=== PATIENT | female | born 1945 | race Caucasian/White ===

== ENCOUNTER 2018-08-31 06:11 | Inpatient (IN) ==
--- NOTE | 2018-08-13 08:29 | History & Physical Report ---
Date of Service August 13, 2018 Date of Surgery: 08-31-18 Assessment & Plan (1) Tricompartment osteoarthritis of right knee: Risks and benefits of procedure discussed in detail today, patient would like to proceed with a Right total knee replacement at [facility] as scheduled. she has already had her medical clearance with [facility], Will d/c her Eliquis 3 days prior to surgery and resume JENNIFER post op. f/u 2 weeks post op for routine post-operative care and x-ray, sooner if having any problems. will make arrangements for possible transfer to [facility]. At this point in time, has failed conservative measures and would like to proceed with surgical intervention. History of Present Illness Chief Complaint: right knee pain Primary Care Provider: Delroy Peralta Ms Ac is a 73 year old female who is here for a follow up of right knee pain, presents for pre-op evaluation prior to a Right tka for 08-31-18. she complains of pain, decreased range of motion and stiffness. She states that the symptoms have been chronic non-traumatic. The symptoms are aggravated by ascending stairs, first steps while awake, walking, weight bearing and daily activities. [place] states that the symptoms are not relieved by the previous injections, unable to take NSAIDs due to Eliquis. is on Eliquis therapy which limits her NSAID use. She has been treated with PT, has had Visco and Cortisone in the past on the right side. She has had Pt. has a brace, however it causes increased pain and cane as needed. Pt. lives alone in a 2 story home with 1 step to enter onto the porch and many stairs to acces her second floor, including bathroom and bedroom. Allergies Allergy/AdvReac Type Severity Reaction Status Date / Time doxycycline Allergy Unknown pt can't Verified 08/06/18 08:17 remember niacin Allergy Unknown MUSCLE PAIN Verified 08/06/18 08:17 Beta-Blockers AdvReac Unknown HAIR LOSS Verified 08/06/18 08:17 (Beta-Adrenergic Bloc lisinopril AdvReac Unknown COUGH Verified 08/06/18 08:17 Home Medications Home Medications Medication Instructions Recorded Confirmed Type Calcium 600 + D(3) 1 cap PO BID 11/03/17 08/06/18 History Eliquis 5 mg PO BID 11/03/17 08/06/18 History Mcbrides-3 1 tab PO BID 11/03/17 08/06/18 History Super B Complex + C 1 tab PO DAILY 11/03/17 08/06/18 History ascorbic acid (vitamin C) [Vitamin 1 g PO DAILY 11/03/17 08/06/18 History C] aspirin 81 mg PO HS 11/03/17 08/06/18 History diltiazem HCl [DILT-XR] 120 mg PO QAM 11/03/17 08/06/18 History docusate sodium 100 mg PO DAILY 11/03/17 08/06/18 History fexofenadine [Ella Allergy] 180 mg PO QAM 11/03/17 08/06/18 History hydrochlorothiazide 12.5 mg PO QAM 11/03/17 08/06/18 History irbesartan [Avapro] 300 mg PO HS 11/03/17 08/06/18 History montelukast [Singulair] 10 mg PO QPM 11/03/17 08/06/18 History multivitamin 1 tab PO DAILY 11/03/17 08/06/18 History omeprazole 20 mg PO QAM 11/03/17 08/06/18 History potassium 99 mg PO DAILY 11/03/17 08/06/18 History sumatriptan succinate [Imitrex] 0.5 tab PO DAILY PRN 11/03/17 08/06/18 History zinc 50 mg PO DAILY 11/03/17 08/06/18 History oxycodone 5 - 10 mg PO Q4H PRN #60 tab 11/21/17 08/06/18 Rx acetaminophen [Pain Reliever] 1,000 mg PO Q8 PRN 08/06/18 08/06/18 History rosuvastatin [Crestor] 10 mg PO HS 08/06/18 08/06/18 History Past Med/Surg History Medical History Anxiety Atrial fibrillation PAROXYSMAL. DX 2 YEARS AGO - ON ELIQUIS/NO CARDIOVERSION GERD (gastroesophageal reflux disease) History of anesthesia reaction TAKES A LITTLE LONGER TO WAKE UP Hyperlipidemia Hypertension Kidney stones Left cataract Migraine Osteoarthritis Surgical History Family history of reaction to anesthesia daughter was told not to have succinylcholine after she had an 'irregular HR' after T+A--pt has had GA several times without issues. Denies specifically hearing terms MH or pseudocholinesterase deficiency. Fusion of spine L4-S1 2012 @ [facility]. Pt recalls very painful arterial line placement! No anesthesia complications. History of appendectomy History of cardiac cath 2013 -CP - NO ANGIOPLASTY/STENTS History of cataract extraction RIGHT/ UPCOMING LEFT AUGUST 09 History of section History of colonoscopy History of dilatation and curettage History of hysterectomy History of tonsillectomy and adenoidectomy History of total left knee replacement Family History Brother Family history of brain cancer Social History Preferred Language: Kyrgyz Communication Ability: Effective Box Office Attendant Required: No Beliefs That Will Affect Care: Temple Temple Beliefs: CONGREGATION Current Living Situation: Alone Other Information That Helps Us Care for You: No Feels Safe at Home: Yes Smoking Status: Former smoker Tobacco Type: cigarettes Do You Dip or Chew Tobacco: No Smoking End Date: 1985 Second Hand Exposure: No Hx Alcohol Use: No Hx Substance Use: No Review of Systems Review of Systems: All systems reviewed & are unremarkable except as noted in HPI & below Constitutional: no fever, no chills and no sweats Respiratory: no cough and no dyspnea Cardiovascular: no chest pain, no dyspnea and no orthopnea Gastrointestinal: no nausea and no vomiting Musculoskeletal: as per Subjective / HPI Physical Exam Physical Exam: Ht: 5ft 2in Wt: 90.72kg BP: 160/86 Pulse: 78 Constitutional: WD/WN, vitals as above no acute distress Respiratory: normal respiratory effort, lungs clear to auscultation no respiratory distress, no labored breathing and does not use accessory muscles Cardiovascular: RRR, no murmur, no edema Gastrointestinal (Abdomen): normal bowel sounds, soft, nontender, no hepatosplenomegaly Musculoskeletal: Right Knee Exam- she ambulates with a limp, overall she has varus alignment, there is no atrophy, moderate effusion, diffuse tenderness to the knee greatest over medial compartment, mild crepitation with motion, maribel's negative, Anson's is positive, Posterior drawer- negative, anterior drawer negative, valgus stress negative, varus stress negative, there is no extensor lag, pain with active range of motion, Range of motion 0/3/110. No pain with active/passive ROM of ankle. Lower extremity strength normal. Lower extremity neuro-vascular is normal Skin: no rashes, warm and dry Results & Data Diagnostic Findings Right Knee X-ray from January 2018 showing advanced degenerative changes to the right knee, with narrowing of the medial compartment and of the patello-femoral joint with patellar spurring noted, findings consistent with joint space narrowing, osteophyte formation and subchondral sclerosis noted. overall varus alignment. no acute bony pathology noted.
--- NOTE | 2018-08-13 10:56 | PAT Medication Instructions ---
Medication Instructions Date of Service August 13, 2018 Home Medications Medication Instructions Recorded oxycodone 5 - 10 mg PO Q4H PRN #60 tab 11/21/17 Calcium 600 + D(3) 1 cap PO BID Eliquis 5 mg PO BID Mcgrann-3 1 tab PO BID Super B Complex + C 1 tab PO DAILY ascorbic acid (vitamin C) [Vitamin C] 1 g PO DAILY aspirin 81 mg PO HS diltiazem HCl [DILT-XR] 120 mg PO QAM docusate sodium 100 mg PO DAILY fexofenadine [Ella Allergy] 180 mg PO QAM hydrochlorothiazide 12.5 mg PO QAM irbesartan [Avapro] 300 mg PO HS montelukast [Singulair] 10 mg PO QPM multivitamin 1 tab PO DAILY omeprazole 20 mg PO QAM potassium 99 mg PO DAILY sumatriptan succinate [Imitrex] 0.5 tab PO DAILY PRN zinc 50 mg PO DAILY oxycodone 5 - 10 mg PO Q4H PRN acetaminophen [Pain Reliever] 1,000 mg PO Q8 PRN rosuvastatin [Crestor] 10 mg PO HS ASK your prescriber and surgeon Eliquis 5 mg PO BID MUST BE HELD A MINIMUM OF 72 HOURS FOR SPINAL ANESTHESIA (PREFERRED METHOD) STOP taking 2 weeks before surgery Mcgrann-3 1 tab PO BID DO NOT take the morning of surgery Calcium 600 + D(3) 1 cap PO BID Super B Complex + C 1 tab PO DAILY ascorbic acid (vitamin C) 1 g PO DAILY docusate sodium 100 mg PO DAILY fexofenadine [Ella Allergy] 180 mg PO QAM hydrochlorothiazide 12.5 mg PO QAM multivitamin 1 tab PO DAILY potassium 99 mg PO DAILY zinc 50 mg PO DAILY Take morning of surgery With a small sip of water, OTHERWISE NOTHING TO EAT OR DRINK AFTER MIDNIGHT: diltiazem HCl [DILT-XR] 120 mg PO QAM omeprazole 20 mg PO QAM sumatriptan succinate [Imitrex] 0.5 tab PO DAILY PRN (if needed) oxycodone 5 - 10 mg PO Q4H PRN (if needed, may be taken up to four hours before surgery) acetaminophen [Pain Reliever] 1,000 mg PO Q8 PRN (if needed, may be taken up to four hours before surgery) Take evening before surgery Calcium 600 + D(3) 1 cap PO BID aspirin 81 mg PO HS irbesartan [Avapro] 300 mg PO HS montelukast [Singulair] 10 mg PO QPM sumatriptan succinate [Imitrex] 0.5 tab PO DAILY PRN (if needed) oxycodone 5 - 10 mg PO Q4H PRN (if needed) acetaminophen [Pain Reliever] 1,000 mg PO Q8 PRN (if needed) rosuvastatin [Crestor] 10 mg PO HS Other Notes If you have any questions please call us at [phone] or [phone] or [phone] or [phone]
--- NOTE | 2018-08-13 11:10 | Anesthesiology Consultation ---
Date of Service August 13, 2018 Assessment & Plan (1) Encounter for pre-operative examination: Cardiac Clearance 07/27/18 = "from knee surgery standpoint... should be considered a low to intermediate risk candidate. No further cardiovascular testing or procedures are recommended prior to undergoing knee surgery." Chart Review Chart Review: Acceptable Risk for Surgery and Patient seen in Pre Admission Testing Teaching & Discussion Instructed NPO after midnight before surgery, except medications with 15 cc of water. Medication instructions provided according to the PAT guidelines. History Surgery Operation Date: 08/31/18 07:15 Proposed Procedures p Right Total Knee Arthroplasty - Andrea Domingo DO Height/Weight Height: 5 ft 2 in Weight: 92.7 kg Allergies Allergy/AdvReac Type Severity Reaction Status Date / Time doxycycline Allergy Unknown pt can't Verified 08/06/18 08:17 remember niacin Allergy Unknown MUSCLE PAIN Verified 08/06/18 08:17 Beta-Blockers AdvReac Unknown HAIR LOSS Verified 08/06/18 08:17 (Beta-Adrenergic Bloc lisinopril AdvReac Unknown COUGH Verified 08/06/18 08:17 Medications Home Medications Medication Instructions Recorded Confirmed Last Taken Calcium 600 + D(3) 1 cap PO BID 11/03/17 08/06/18 10/29/17 09:00 Eliquis 5 mg PO BID 11/03/17 08/06/18 08/06/18 Gypsy-3 1 tab PO BID 11/03/17 08/06/18 10/29/17 09:00 Super B Complex + C 1 tab PO DAILY 11/03/17 08/06/18 10/29/17 09:00 ascorbic acid (vitamin C) [Vitamin 1 g PO DAILY 11/03/17 08/06/18 10/29/17 09:00 C] aspirin 81 mg PO HS 11/03/17 08/06/18 08/05/18 diltiazem HCl [DILT-XR] 120 mg PO QAM 11/03/17 08/06/18 08/06/18 docusate sodium 100 mg PO DAILY 11/03/17 08/06/18 11/16/17 15:00 fexofenadine [Ella Allergy] 180 mg PO QAM 11/03/17 08/06/18 08/06/18 hydrochlorothiazide 12.5 mg PO QAM 11/03/17 08/06/1819 irbesartan [Avapro] 300 mg PO HS 11/03/17 08/06/18 08/05/18 montelukast [Singulair] 10 mg PO QPM 11/03/17 08/06/18 08/05/18 multivitamin 1 tab PO DAILY 11/03/17 08/06/18 10/29/17 09:00 omeprazole 20 mg PO QAM 11/03/17 08/06/18 08/06/18 potassium 99 mg PO DAILY 11/03/17 08/06/18 10/29/17 09:00 sumatriptan succinate [Imitrex] 0.5 tab PO DAILY PRN 11/03/17 08/06/18 11/18/17 21:00 zinc 50 mg PO DAILY 11/03/17 08/06/18 10/29/17 09:00 oxycodone 5 - 10 mg PO Q4H PRN #60 tab 11/21/17 08/06/18 Unknown acetaminophen [Pain Reliever] 1,000 mg PO Q8 PRN 08/06/18 08/06/18 Unknown rosuvastatin [Crestor] 10 mg PO HS 08/06/18 08/06/18 08/05/18 Past Medical History Medical History Anxiety Atrial fibrillation PAROXYSMAL. DX 2 YEARS AGO - ON ELIQUIS GERD (gastroesophageal reflux disease) Hyperlipidemia Hypertension Kidney stones Migraine Obesity Osteoarthritis Exercise / Class Metabolic Activity II 4-5 Yardwork/Stairs/Walk up hill (Denies chest pain, some SOB with stairs but goes slowly 2/2 knee pain, does stairs daily) Past Family History Family History Brother Family history of brain cancer Past Surgical History Surgical History Family history of reaction to anesthesia daughter was told not to have succinylcholine after she had an 'irregular HR' after T+A--pt has had GA several times without issues. Denies specifically hearing terms MH or pseudocholinesterase deficiency. Fusion of spine L4-S1 2012 @ [facility]. Pt recalls very painful arterial line placement! No anesthesia complications. History of appendectomy History of cardiac cath 2014 -CP - NO ANGIOPLASTY/STENTS History of cataract extraction History of section History of colonoscopy History of dilatation and curettage History of hysterectomy History of tonsillectomy and adenoidectomy History of total left knee replacement Past Anesthesia History No Hx of Anesthesia Complications and Other Daughter was told not to have succinylcholine after she had an 'irregular HR' after T+A--pt has had GA several times without issues. Denies specifically hearing terms MH or pseudocholinesterase deficiency. S/P L TKA 11/19/17 = SAB + PNB, NO ISSUES PER RECORD. History of PONV No Hx of PONV and No Hx of Motion Sickness Social History Smoking Status: Former smoker tobacco type: cigarettes Do You Dip or Chew Tobacco: No Smoking End Date: 1985 Hx Alcohol Use: No Hx Substance Use: No substance use type: does not use Review of Systems Pt denies any recent chest pain, shortness of breath, cough, fever or URI. +palpitations (pt has afib) Physical Exam Vital Signs BP: 111/68 P: 59bpm SPO2: 94% RA T: 97.6 F R: 14 ENMT Mouth: + dental restorations (few crowns); no chipped teeth and no loose teeth Thyromental Distance: > or= 3.5 Finger Breadths (3.5) Mallampati Class: I Neck normal visual inspection; neck extension not limited Respiratory normal respiratory effort Auscultation: lungs clear to auscultation bilaterally Cardiovascular Rate/Rhythm: regular rate and regular rhythm Heart Sounds: no murmur Vessels: no carotid bruit Extremities: no edema Testing Laboratory Results 08/13/18 11:35 08/13/18 11:35 PT 10.7 Seconds (9.0-12.0) 08/13/18 11:35 INR 1.0 (0.9-1.1) 08/13/18 11:35 APTT 28.1 Seconds (21.0-31.0) 08/13/18 11:35 Hemoglobin A1c 6.3 % (4.5-5.6) H 08/13/18 11:35 Urine Color Yellow 08/13/18 Unknown Urine Appearance Clear (Clear) 08/13/18 Unknown Urine pH 6.5 (4.5-7.5) 08/13/18 Unknown Ur Specific Sidney 1.021 (1.000-1.030) 08/13/18 Unknown Urine Protein Negative (Negative) 08/13/18 Unknown Urine Glucose (UA) Negative (Negative) 08/13/18 Unknown Urine Ketones Negative (Negative) 08/13/18 Unknown Urine Nitrite Negative (Negative) 08/13/18 Unknown Ur Leukocyte Esterase Negative (Negative) 08/13/18 Unknown Blood Type A Positive 08/13/18 11:35 Antibody Screen NEGATIVE 08/13/18 11:35 Electrocardiogram Date: 07/14/18 Findings: + NSR @ (67) Nonspecific ST depression and diffuse nonspecific T abnormality. Chest X-Ray Date: 11/09/17 Findings: + NAD Echocardiogram Date: 11/13/16 EF: 67% Normal left ventricular chamber size with mild concentric hypertrophy and normal contractility. Normal left ventricular ejection fraction, EF 67%. Right ventricle is normal in size and contractility. Mild left atrial enlargement. Mitral inflow pattern suggestive of impaired relaxation. Stress Test Date: 07/20/18 Type: nuclear Lexiscan Cardiolite stress test demonstrates normal myocardial perfusion. Left ventricular wall motion is normal with EF greater than 65%. Cardiac Catheterization Date: 04/05/13 Other Testing Holter Monitor 09/11/17 Predominantly NSR, no arrhythmia, no afib.
[2018-08-13 14:17] LABS: Basophils # (auto) 0.02 K/uL (0-0.2); Basophils % (auto) 0.3 %; Eosinophils # (auto) 0.29 K/uL (0-0.5); Eosinophils % (auto) 3.9 %; Hematocrit (blood only) 42.2 % (37-47); Hemoglobin 13.6 g/dL (12.0-16.0); Immature Granulocytes # (auto) 0.02 K/uL (0.00-0.02); Immature Granulocytes % (auto) 0.3 %; Lymphocytes # (auto) 1.58 K/uL (1.2-3.4); Lymphocytes % (auto) 21.1 %; Mean Corpuscular Hgb Conc 32.2 g/dL (32-36); Mean Corpuscular Volume 81.6 fL (80-100); Mean Platelet Volume 9.4 fL (7.4-10.4); Monocytes % (auto) 6.7 %; Neutrophils # (auto) 5.09 K/uL (1.4-6.5); Neutrophils % (auto) 67.7 %; Platelet Count 284 K/uL (130-400); RDW Coefficient of Variation 15.9 % (11.5-14.5); RDW Standard Deviation 47.6 fL (36.4-46.3); Red Blood Count 5.17 M/uL (4.2-5.4)
[2018-08-13 14:34] LABS: Estimated Average Glucose 134 mg/dl; Hemoglobin A1C 6.3 % (4.5-5.6)
[2018-08-13 14:35] LABS: Albumin Level 3.9 gm/dl (3.4-5.0); BUN Creatinine Ratio 24.8 (10-20); Calcium 9.7 mg/dl (8.5-10.1); Creatinine Clr Calc Pharmacy 69.9 ml/min; Est GFR (African American) 90.2; Est GFR (Non-African American) 77.8; Potassium 3.8 mmol/L (3.5-5.1)
[2018-08-13 14:38] LABS: Partial Thromboplastin Time 28.1 Seconds (21.0-31.0); Prothrombin Time 10.7 Seconds (9.0-12.0)
[2018-08-13 14:45] LABS: Appearance Urine Clear (Clear); Bilirubin Urine Negative (Negative); Blood Urine Negative (Negative); Color Urine Yellow; Glucose Urine UA Negative (Negative); Ketones Urine Negative (Negative); Leukocyte Esterase Urine Negative (Negative); Nitrite Urine Negative (Negative); Protein Urine Negative (Negative); Specific Gravity Urine 1.021 (1.000-1.030); Urobilinogen Urine Negative (Negative); pH Urine 6.5 (4.5-7.5)
[~2018-08-31 06:11] MED LIST: ACETAMINOPHEN 500 MG TAB PO SCH; CEFAZOLIN 1000MG 1,000 MG/7.5 ML SYR IV SCH; CEFAZOLIN 2000MG 2,000 MG/15 ML SYR IV SCH; CeleBREX 200 MG CAP PO SCH; FAMOTIDINE 20 MG TAB PO SCH; GABAPENTIN 300 MG CAP PO SCH; LR 500ML BOLUS IV SCH; LR 500ML BOLUS, THEN 15ML/HR IV SCH; ROPIVACAINE 0.5% HCL/PF 150 MG, BUPIVACAINE 0.5% MPF 30 ML, EPINEPHrine 30MG/30ML (OR U... INSTIL SCH; TRANEXAMIC ACID 1,000 MG **IV Pre-op IV SCH; dexAMETHasone 4 MG TAB PO SCH
[2018-08-31] MEDS ORDERED: TRANEXAMIC ACID 1,000 MG **IV Intra-op IV SCH (06:30)
[2018-08-31] MEDS ORDERED: ROPIVACAINE 0.5% 5 MG/ML 30 ML VIAL ONE (06:31)
[2018-08-31] MEDS ORDERED: BUPIVACAINE 0.5 % 5 MG/1 ML PF 10ML VIAL ONE (06:31)
--- NOTE | 2018-08-31 06:59 | History & Physical Bridge Note ---
Date of Service August 31, 2018 History & Physical Bridge Note I have examined the patient, reviewed the History & Physical and in the interval since the performance of the History & Physical I have noted the following changes of clinical significance: no changes noted
[2018-08-31] MEDS ORDERED: MIDAZOLAM HCL 1 MG/ML 2ML VIAL ONE (07:07)
[2018-08-31] MEDS ORDERED: fentaNYL citrate 100 MCG/2 ML VIAL ONE (07:07)
[2018-08-31] MEDS ORDERED: LIDOCAINE HCL 2% 2 ML VIAL/AMP(20MG/ML) INFIL ONE (07:07)
[2018-08-31] MEDS ORDERED: ONDANSETRON INJ 2 MG/ML 2 ML VIAL ONE (07:07)
[2018-08-31] MEDS ORDERED: PROPOFOL IV EMULSION 10 MG/ML 20 ML VIAL IV ONE ×2 (07:07→09:00)
[2018-08-31] MEDS ORDERED: ORTHO JOINT ANESTHETIC ONE (07:20)
[2018-08-31] MEDS ORDERED: BACITRACIN INJ 50,000 UNIT VIAL ONE (07:20)
[2018-08-31] MEDS ORDERED: ONDANSETRON INJ 2 MG/ML 2 ML VIAL IV PRN ×2 (08:27→11:37)
[2018-08-31] MEDS ORDERED: ePHEDrine sulfate 50 MG/ML AMP IV PRN (08:27)
[2018-08-31] MEDS ORDERED: ATROPINE SULFATE 0.1 MG/ML 10ML SYR IV PRN (08:27)
[2018-08-31] MEDS ORDERED: fentaNYL citrate 100 MCG/2 ML VIAL IV PRN (08:27)
[2018-08-31] MEDS ORDERED: GLYCOPYRROLATE 0.2 MG/ML VIAL ONE (09:14)
[2018-08-31] MEDS ORDERED: PHENYLEPHRINE HCL 10 MG/ML VIAL ONE (09:14)
[2018-08-31] MEDS ORDERED: ePHEDrine sulfate 50 MG/ML SYR ONE (09:14)
--- NOTE | 2018-08-31 09:33 | Operative Report ---
Post Operative Report Pre & Post Diagnosis Operation Date: 08/31/18 08:35 Pre-Op Diagnosis: Tricompartment Osteoarthritis, Right Knee Post-Op Diagnosis: Tricompartment Osteoarthritis, Right Knee Procedure Operation Date: 08/31/18 08:35 Actual Procedures p Right Total Knee Arthroplasty, Cemented(Right) utilizing Sanabria & NephGuzu journey to non-block total knee arthroplasty size 4 femur 3 tibia 13 polyethylene 29 round patella- Andrea Domingo DO Surgeon Andrea Domingo DO It Consulting Director Zana LUJAN Estimated Blood Loss 5 Findings Consistent with Post-Op Diagnosis Patient presents with severe end-stage DJD right knee varus alignment bone to bone changes with marginal osteophyte subchondral sclerosis subchondral cystic changes no response to conservative management Specimens Bone guard Complications none Disposition Accompanied Patient To Recovery: No Disposition: Recovery Room Indications Patient resents with severe end-stage TriCor milligrams joint disease of the right knee no response to conservative management including physical therapy anti-inflammatories relative rest activity modification Visco supplementation corticosteroid injections patient presents for right total knee arthroplasty Description of Procedure After proper prepping and draping of the Right lower extremity anterior midline incision was made over the region of the extensor extensor mechanism after meticulous hemostasis was obtained and maintained in subcutaneous tissues a medial parapatellar incision was made The patella was subluxed lateralward the medial lateral gutter were cleaned from any hypertrophic synovitis and scar tissue of the distal femoral block was placed and the distal femoral osteotomy cut was made subsequently the chamfers anterior and posterior osteotomy cuts were made utilizing the 4-in-1 block the tibia was subsequently subluxed anteriorward medial and ateral meniscal remnants were excised in their entirety remnants of the anterior and posterior cruciate ligaments were excised in their entirety excellent exposure of the proximal tibia was obtained the tibial osteotomy guide was placed on the proximal tibial osteotomy cut was made once again the knee was irrigated with copious amounts of sterile saline solution the patella was subsequently everted lateralward thickened scar tissue around the patella was removed the patella was subsequently cut utilizing a freehand technique and was drilled prepared for final preparation and placement of patella socially flexion-extension gaps were checked and the equal and symmetric trials were placed to the appropriate femoral and tibial trials with poly-spacer being placed for equal flexion and extension gaps and full range of motion including extension to 0 and flexion to 140 the trial components after having been taken to recovery range of motion was subsequently removed meticulous hemostasis was obtained and maintained subsequently a knee block injection of joint cocktail including ropivacaine 0.5% 150 mg. Bupivacaine 0.5% epinephrine 1-200,030 mL's toradol 30 mg dexamethasone 4 mg ketamine 10 mg clonidine 100 micrograms normal saline solution 30 mg was infiltrated into the soft tissues of the posterior knee medial lateral gutters and periosteal synovium special attention was paid to protect neurovascular structures at all times subsequently trial components having been removed the knee was irrigated with sterile saline solution. debris was removed the proximal tibia was subsequently prepared and was made ready for the placement of the tibial component tibial component was also cemented and tamped into position the femoral component was subsequently placed and cemented in the position the patellar component was subsequently cemented in position because hemostasis once again obtained and maintained wound having been thoroughly irrigated with debridement and debridement lavage was performed as well as a medial parapatellar incision closed with #1 Vicryl in interrupted fashion subcutaneous was closed with #2 Vicryl skin was closed with skin clips. PA-C was necessary for prepping and drapping as well as wound closure of deep fascia Sub cutaneous tissue and skin and was necessary for the case. A sterile compressive dressing was placed patient was taken to recovery in stable condition of report dictated by Jose L I attest to the content of the Intraoperative Record and any orders documented therein. Any exceptions are noted below. I attest to the content of the Intraoperative Record and any orders documented therein. Any exceptions are noted below.
--- NOTE | 2018-08-31 11:31 | XRay Report ---
RIGHT KNEE 2 VIEWS History: Right total knee arthroplasty. Degenerative arthritis. Postop. FINDINGS: The patient is status post a right total knee arthroplasty. The hardware is intact. No frac ture or dislocation. Surgical drains are in place. IMPRESSION: Right total knee arthroplasty. No evidence for hardware complication. Electronically signed by: Rohith Jacobsen M.D. 08/31/2018 11:29 AM
[2018-08-31] MEDS ORDERED: NALOXONE HCL 0.4 MG/1 ML VIAL/CARP IV PRN (11:37)
[2018-08-31] MEDS ORDERED: MAGNESIUM HYDROXIDE SUSP 30 ML UDC PO PRN (11:37)
[2018-08-31] MEDS ORDERED: SUMAtriptan succinate 100 MG TAB PO PRN (11:37)
[2018-08-31] MEDS ORDERED: METOCLOPRAMIDE HCL INJ 5 MG/ML 2 ML VIAL IV PRN (11:37)
[2018-08-31] MEDS ORDERED: HYDROmorphone INJ 0.5 MG/0.5 ML SYR IV PRN (11:37)
[2018-08-31] MEDS ORDERED: ALUMINUM/MAGNESIUM SUSP 30 ML UDC PO PRN (11:37)
[2018-08-31] MEDS ORDERED: BISACODYL 10 MG SUPP PR PRN (11:37)
[2018-08-31] MEDS ORDERED: SODIUM CHLORIDE 0.9% 1000ML 1,000 ML IV SCH (11:45)
--- NOTE | 2018-08-31 13:01 | Anesthesiology Progress Note ---
Date of Service August 31, 2018 Anesthesia Post Procedure Vital Signs Vital Signs: Temp Pulse Pulse Resp BP Pulse Ox 08/31/18 12:11 54 L 16 120/71 94 08/31/18 11:47 54 L 16 113/68 93 08/31/18 11:15 36.4 C L 59 L 16 106/66 95 08/31/18 10:55 36.5 C 60 24 108/61 93 08/31/18 10:45 62 24 104/59 L 92 08/31/18 10:35 57 L 17 106/60 95 08/31/18 10:25 58 L 18 89/50 L 93 08/31/18 10:16 36.6 C 63 20 96/58 L 93 08/31/18 06:55 36.4 C L 20 138/74 94 Transfer of Care Handoff Completed per policy Notes Mental Status: alert / awake / arousable Patient Amnestic to Procedure: Yes Nausea / Vomiting: adequately controlled Pain: adequately controlled Airway Patency, RR, SpO2: stable & adequate BP & HR: stable & adequate Hydration State: stable & adequate Neuraxial Anesthesia: was administered and sensory block is resolving Anesthetic Complications: no major complications apparent and Pt Satisfied with anesthetic care
--- NOTE | 2018-08-31 14:21 | Hospitalist Consultation ---
Date of Consultation August 31, 2018 Assessment & Plan (1) Tricompartment osteoarthritis of right knee: status post arthroplasty of right knee by Dr Domingo. care per surgical team for wound care and dressing changes. pain management as tolerated. OOB with assistance and NWB on RIght Encourage incentive spiromery use Present on Admission?: Yes (2) Osteoarthritis of left knee: as noted above (3) Afib: rate controlled. resume on diltiazem to keep HR between 60 -100 resume anticoagulation with eliquis Present on Admission?: Yes (4) HTN (hypertension): stable on avapro / HCTZ Present on Admission?: Yes (5) GERD (gastroesophageal reflux disease): resume on omeprazole Present on Admission?: Yes (6) Headache: reusme imitrex History of Present Illness Reason for Consultation: Postop management Requesting Physician: Dr. Andrea Domingo Attending Physician: Andrea Domingo, History of Present Illness Patient is a 73-year-old female past medical history significant for paroxysmal A. fib on Eliquis, hypertension, hyperlipidemia, osteoarthritis who status post right total knee arthroplasty. Consultation for postoperative Management of hypertension and atrial fibrillation. Pain is well controlled except for complaining of mild headache and acid reflux. She denies any chest pain, short ness of breath, dizziness or lightheadedness nausea vomiting Allergies Allergy/AdvReac Type Severity Reaction Status Date / Time doxycycline Allergy Unknown pt can't Verified 08/31/18 06:48 remember niacin Allergy Unknown MUSCLE PAIN Verified 08/31/18 06:48 Beta-Blockers AdvReac Unknown HAIR LOSS Verified 08/31/18 06:48 (Beta-Adrenergic Bloc lisinopril AdvReac Unknown COUGH Verified 08/31/18 06:48 Home Medications Home Medications Medication Instructions Recorded Confirmed Type Calcium 600 + D(3) 1 cap PO BID 11/03/17 08/31/18 History Eliquis 5 mg PO BID 11/03/17 08/31/18 History [place]-3 1 tab PO BID 11/03/17 08/31/18 History Super B Complex + C 1 tab PO DAILY 11/03/17 08/31/18 History ascorbic acid (vitamin C) [Vitamin 1 g PO DAILY 11/03/17 08/31/18 History C] aspirin 81 mg PO HS 11/03/17 08/31/18 History diltiazem HCl [DILT-XR] 120 mg PO QAM 11/03/17 08/31/18 History docusate sodium 100 mg PO DAILY 11/03/17 08/31/18 History fexofenadine [Ella Allergy] 180 mg PO QAM 11/03/17 08/31/18 History hydrochlorothiazide 12.5 mg PO QAM 11/03/17 08/31/18 History irbesartan [Avapro] 300 mg PO HS 11/03/17 08/31/18 History montelukast [Singulair] 10 mg PO QPM 11/03/17 08/31/18 History multivitamin 1 tab PO DAILY 11/03/17 08/31/18 History omeprazole 20 mg PO QAM 11/03/17 08/31/18 History potassium 99 mg PO DAILY 11/03/17 08/31/18 History sumatriptan succinate [Imitrex] 0.5 tab PO DAILY PRN 11/03/17 08/31/18 History zinc 50 mg PO DAILY 11/03/17 08/31/18 History oxycodone 5 - 10 mg PO Q4H PRN #60 tab 11/21/17 08/31/18 Rx acetaminophen [Pain Reliever] 1,000 mg PO Q8 PRN 08/06/18 08/31/18 History rosuvastatin [Crestor] 10 mg PO HS 08/06/18 08/31/18 History Patient History Medical History Anxiety Atrial fibrillation PAROXYSMAL. DX 2 YEARS AGO - ON ELIQUIS GERD (gastroesophageal reflux disease) Hyperlipidemia Hypertension Kidney stones Migraine Obesity Osteoarthritis Surgical History Family history of reaction to anesthesia daughter was told not to have succinylcholine after she had an 'irregular HR' after T+A--pt has had GA several times without issues. Denies specifically hearing terms MH or pseudocholinesterase deficiency. Fusion of spine L4-S1 2012 @ [facility]. Pt recalls very painful arterial line placement! No anesthesia complications. History of appendectomy History of cardiac cath 2013 -CP - NO ANGIOPLASTY/STENTS History of cataract extraction History of section History of colonoscopy History of dilatation and curettage History of hysterectomy History of tonsillectomy and adenoidectomy History of total left knee replacement Family History Brother Family history of brain cancer Social History Preferred Language: Georgian Communication Ability: Effective Cupola Tapper Required: No Beliefs That Will Affect Care: Zoroastrian Zoroastrian Beliefs: ADVENTISM Current Living Situation: Alone Other Information That Helps Us Care for You: No Feels Safe at Home: Yes Smoking Status: Former smoker Tobacco Type: cigarettes Do You Dip or Chew Tob acco: No Smoking End Date: 1985 Second Hand Exposure: No Hx Alcohol Use: No Hx Substance Use: No Review of Systems Constitutional: as per Subjective / HPI Eyes: as per Subjective / HPI Ear, Nose, Mouth, Throat: as per Subjective / HPI Respiratory: no cough, no chest congestion, no dyspnea, no dyspnea on exertion and no pain on inspiration Cardiovascular: no chest pain, no chest pain with activity, no dyspnea and no dyspnea at rest Gastrointestinal: + belching and + heartburn; no nausea, no vomiting and no cramping Genitourinary: no difficulty urinating, no decreased urination and no flank pain Musculoskeletal: + joint pain Neurologic: no generalized weakness, no paresthesia and no dizziness Physical Exam Constitutional: WD/WN, vitals as above well developed and well nourished; no acute distress Eyes: PERRL, conjunctivae normal, anicteric sclerae ENMT: external ear and nose normal, oropharynx normal Neck: trachea midline, no thyromegaly Respiratory: normal respiratory effort, lungs clear to auscultation Mild bibasilar crackles Cardiovascular: RRR, no murmur, no edema Heart Sounds: normal S1 and normal S2 Gastrointestinal (Abdomen): normal bowel sounds, soft, nontender, no hepatosplenomegaly Musculoskeletal: Right knee status post surgery immobilized with ice pack able to wiggle toes without any problem dressing is intact no evidence of bleeding Skin: no rashes, warm and dry Neurologic: PERRL, EOMI, accommodation nl, no face palsy, no dysarthria No focal neurological deficits Psychiatric: A+Ox3, euthymic affect Results & Data Vital Signs (Past 12 Hours) Vital Signs Temp Pulse Pulse Resp BP Pulse Ox 08/31/18 13:15 58 L 14 122/75 95 08/31/18 12:11 54 L 16 120/71 94 07/09/19 11:47 54 L 16 113/68 93 08/31/18 11:15 36.4 C L 59 L 16 106/66 95 08/31/18 10:55 36.5 C 60 24 108/61 93 08/31/18 10:45 62 24 104/59 L 92 08/31/18 10:35 57 L 17 106/60 95 08/31/18 10:25 58 L 18 89/50 L 93 08/31/18 10:16 36.6 C 63 20 96/58 L 93 08/31/18 06:55 36.4 C L 20 138/74 94 Laboratory Results Lab Results 08/13/18 08/13/18 08/13/18 Range/Units 11:35 11:35 11:35 WBC 7.50 (4.8-10.8) K/uL RBC 5.17 (4.2-5.4) M/uL Hgb 13.6 (12.0-16.0) g/dL Hct 42.2 (37-47) % MCV 81.6 (80-100) fL MCH 26.3 (25-34) pg MCHC 32.2 (32-36) g/dL RDW Std Deviation 47.6 H (36.4-46.3) fL RDW Coeff of Doug 15.9 H (11.5-14.5) % Plt Count 284 (130-400) K/uL MPV 9.4 (7.4-10.4) fL Immature Gran % (Auto) 0.3 % Neut % (Auto) 67.7 % Lymph % (Auto) 21.1 % Rhea % (Auto) 6.7 % Eos % (Auto) 3.9 % Baso % (Auto) 0.3 % Immature Gran # (Auto) 0.02 (0.00-0.02) K/uL Neut # (Auto) 5.09 (1.4-6.5) K/uL Lymph # (Auto) 1.58 (1.2-3.4) K/uL Rhea # (Auto) 0.50 (0.11-0.59) K/uL Eos # (Auto) 0.29 (0-0.5) K/uL Baso # (Auto) 0.02 (0-0.2) K/uL PT 10.7 (9.0-12.0) Seconds INR 1.0 (0.9-1.1) APTT 28.1 (21.0-31.0) Seconds PTT Ratio 1.0 Sodium 143 (136-145) mmol/L Potassium 3.8 (3.5-5.1) mmol/L Chloride 110 H (98-107) mmol/L Carbon Dioxide 23 (21-32) mmol/L Anion Gap 10.0 (3-11) BUN 19 H (7-18) mg/dl Creatinine 0.76 (0.6-1.2) mg/dl Est Cr Clr Drug Dosing 69.9 ml/min Est GFR ( Amer) 90.2 Est GFR (Non-Af Amer) 77.8 BUN/Creatinine Ratio 24.8 H (10-20) Glucose 125 H (70-99) mg/dl Estimat Average Glucose mg/dl Hemoglobin A1c (4.5-5.6) % Calcium 9.7 (8.5-10.1) mg/dl Albumin 3.9 (3.4-5.0) gm/dl Urine Color Urine Appearance (Clear) Urine pH (4.5-7.5) Ur Specific [place] (1.000-1.030) Urine Protein (Negative) Urine Glucose (UA) (Negative) Urine Ketones (Negative) Urine Blood (Negative) Urine Nitrite (Negative) Urine Bilirubin (Negative) Urine Urobilinogen (Negative) Ur Leukocyte Esterase (Negative) Blood Type Antibody Screen 08/13/18 08/13/18 08/13/18 Range/Units 11:35 11:35 Unknown WBC (4.8-10.8) K/uL RBC (4.2-5.4) M/uL Hgb (12.0-16.0) g/dL Hct (37-47) % MCV (80-100) fL MCH (25-34) pg MCHC (32-36) g/dL RDW Std Deviation (36.4-46.3) fL RDW Coeff of Doug (11.5-14.5) % Plt Count (130-400) K/uL MPV (7.4-10.4) fL Immature Gran % (Auto) % Neut % (Auto) % Lymph % (Auto) % Rhea % (Auto) % Eos % (Auto) % Baso % (Auto) % Immature Gran # (Auto) (0.00-0.02) K/uL Neut # (Auto) (1.4-6.5) K/uL Lymph # (Auto) (1.2-3.4) K/uL Rhea # (Auto) (0.11-0.59) K/uL Eos # (Auto) (0-0.5) K/uL Baso # (Auto) (0-0.2) K/uL PT (9.0-12.0) Seconds INR (0.9-1.1) APTT (21.0-31.0) Seconds PTT Ratio Sodium (136-145) mmol/L Potassium (3.5-5.1) mmol/L Chloride (98-107) mmol/L Carbon Dioxide (21-32) mmol/L Anion Gap (3-11) BUN (7-18) mg/dl Creatinine (0.6-1.2) mg/dl Est Cr Clr Drug Dosing ml/min Est GFR ( Amer) Est GFR (Non-Af Amer) BUN/Creatinine Ratio (10-20) Glucose (70-99) mg/dl Estimat Average Glucose 134 mg/dl Hemoglobin A1c 6.3 H (4.5-5.6) % Calcium (8.5-10.1) mg/dl Albumin (3.4-5.0) gm/dl Urine Color Yellow Urine Appearance Clear (Clear) Urine pH 6.5 (4.5-7.5) Ur Specific [place] 1.021 (1.000-1.030) Urine Protein Negative (Negative) Urine Glucose (UA) Negative (Negative) Urine Ketones Negative (Negative) Urine Blood Negative (Negative) Urine Nitrite Negative (Negative) Urine Bilirubin Negative (Negative) Urine Urobilinogen Negative (Negative) Ur Leukocyte Esterase Negative (Negative) Blood Type A Positive Antibody Screen NEGATIVE 08/13/18 11:35 08/13/18 11:35 PG Care Time/CCT Total # of Minutes Spent Total Time Spent with Patient: Total time spent is greater than 50% in coordination of care (as documented) at patient's floor/unit and/or counseling p atient:
[2018-08-31] MEDS: ACETAMINOPHEN 500 MG TAB PO SCH ×2 (15:19→21:56)
[2018-08-31] MEDS: CEFAZOLIN 2000MG 2,000 MG/15 ML SYR IV SCH (16:17)
[2018-08-31] MEDS: FERROUS GLUCONATE 324 MG TAB PO SCH (16:19)
[2018-08-31] MEDS: DOCUSATE SODIUM 100 MG CAP PO SCH (20:43)
[2018-08-31] MEDS: ROSUVASTATIN CALCIUM 10 MG TAB PO SCH (20:43)
[2018-08-31] MEDS: CALCIUM 600MG + VIT D 400 IU TAB PO SCH (20:43)
[2018-08-31] MEDS: MONTELUKAST SODIUM 10 MG TABLET PO SCH (20:43)
[2018-08-31] MEDS: IRBESARTAN 150 MG TAB PO SCH (20:43)
[2018-08-31] MEDS: SENNA 8.6 MG TAB PO SCH (20:47)
[2018-08-31] MEDS: ASPIRIN 81 MG ECTAB PO SCH (20:47)
[2018-09-01] MEDS: CEFAZOLIN 2000MG 2,000 MG/15 ML SYR IV SCH (00:05)
[2018-09-01] MEDS: ACETAMINOPHEN 500 MG TAB PO SCH ×3 (05:12→22:02)
[2018-09-01 06:14] LABS: Hematocrit (blood only) 37.3 % (37-47); Hemoglobin 12.1 g/dL (12.0-16.0); Mean Corpuscular Hgb Conc 32.4 g/dL (32-36); Mean Corpuscular Volume 82.3 fL (80-100); Platelet Count 245 K/uL (130-400); RDW Coefficient of Variation 15.9 % (11.5-14.5); RDW Standard Deviation 47.6 fL (36.4-46.3); Red Blood Count 4.53 M/uL (4.2-5.4); White Blood Count 15.51 K/uL (4.8-10.8)
[2018-09-01 06:44] LABS: BUN Creatinine Ratio 17.1 (10-20); Calcium 9.1 mg/dl (8.5-10.1); Creatinine Clr Calc Pharmacy 57.5 ml/min; Est GFR (African American) 71.6; Est GFR (Non-African American) 61.8; Potassium 3.7 mmol/L (3.5-5.1)
--- NOTE | 2018-09-01 08:01 | Anesthesiology Progress Note ---
Date of Service September 01, 2018 Anesthesia Post Procedure Vital Signs Vital Signs: Temp Pulse Pulse Resp BP Pulse Ox 09/01/18 06:59 36.9 C 68 18 124/59 L 91 09/01/18 03:12 36.5 C 56 L 20 126/75 91 08/31/18 23:16 36.6 C 56 L 16 127/71 94 08/31/18 15:04 36.5 C 54 L 17 118/70 96 08/31/18 14:14 60 16 130/77 95 08/31/18 13:15 58 L 14 122/75 95 08/31/18 12:11 54 L 16 120/71 94 08/31/18 11:47 54 L 16 113/68 93 08/31/18 11:15 36.4 C L 59 L 16 106/66 95 08/31/18 10:55 36.5 C 60 24 108/61 93 08/31/18 10:45 62 24 104/59 L 92 08/31/18 10:35 57 L 17 106/60 95 08/31/18 10:25 58 L 18 89/50 L 93 08/31/18 10:16 36.6 C 63 20 96/58 L 93 Notes Mental Status: alert / awake / arousable and participated in evaluation Patient Amnestic to Procedure: Yes Nausea / Vomiting: adequately controlled Pain: adequately controlled Airway Patency, RR, SpO2: stable & adequate BP & HR: stable & adequate Hydration State: stable & adequate Neuraxial Anesthesia: was administered and sensory block resolved Anesthetic Complications: no major complications apparent and Pt Satisfied with anesthetic care
--- NOTE | 2018-09-01 08:38 | Orthopedic Progress Note ---
Date of Service September 01, 2018 Assessment & Plan (1) Tricompartment osteoarthritis of right knee: Postop day 1 status post right TKA. PT/OT protocols. Weightbearing as tolerated on right lower extremity. DVT prophylaxis with apixaban 5 mg p.o. twice daily, SURENDRA Burnett. Continue current pain regimen. DC planning-patient is planning for home health PT whenever discharged. Subjective Postop day 1 status post right total knee arthroplasty. Patient is sitting up in her chair at this time. Nursing related that she had some coarse breath sounds during auscultation. O2 saturations in the low 90s. This was done while she was lying in bed. Patient is currently sitting in her chair at this time and states that she had just been using her incentive spirometry. She denies shortness of breath, chest pain, lightheadedness. Pain is controlled at this time. Physical Exam Physical Exam: Dressings are clean, dry, and intact. Calves are soft nontender. Neurovascular is intact. Toes are mobile. Hemovac drainage was 125 mL's from previous shift. Auscultation of her lungs at this time shows clear to auscultation with no coarse upper airway sounds. Results & Data Vital Signs (Past 12 Hours) Vital Signs Temp Pulse Resp BP Pulse Ox 09/01/18 06:59 36.9 C 68 18 124/59 L 91 09/01/18 03:12 36.5 C 56 L 20 126/75 91 08/31/18 23:16 36.6 C 56 L 16 127/71 94 Laboratory Results Laboratory Results WBC 15.51 K/uL (4.8-10.8) H 09/01/18 05:58 RBC 4.53 M/uL (4.2-5.4) 09/01/18 05:58 Hgb 12.1 g/dL (12.0-16.0) 09/01/18 05:58 Hct 37.3 % (37-47) 09/01/18 05:58 MCV 82.3 fL (80-100) 09/01/18 05:58 MCH 26.7 pg (25-34) 09/01/18 05:58 MCHC 32.4 g/dL (32-36) 09/01/18 05:58 RDW Std Deviation 47.6 fL (36.4-46.3) H 09/01/18 05:58 RDW Coeff of Doug 15.9 % (11.5-14.5) H 09/01/18 05:58 Plt Count 245 K/uL (130-400) 09/01/18 05:58 MPV 9.0 fL (7.4-10.4) 09/01/18 05:58 Immature Gran % (Auto) 0.3 % 08/13/18 11:35 Neut % (Auto) 67.7 % 08/13/18 11:35 Lymph % (Auto) 21.1 % 08/13/18 11:35 Burt % (Auto) 6.7 % 08/13/18 11:35 Eos % (Auto) 3.9 % 08/13/18 11:35 Baso % (Auto) 0.3 % 08/13/18 11:35 Immature Gran # (Auto) 0.02 K/uL (0.00-0.02) 08/13/18 11:35 Neut # (Auto) 5.09 K/uL (1.4-6.5) 08/13/18 11:35 Lymph # (Auto) 1.58 K/uL (1.2-3.4) 08/13/18 11:35 Burt # (Auto) 0.50 K/uL (0.11-0.59) 08/13/18 11:35 Eos # (Auto) 0.29 K/uL (0-0.5) 08/13/18 11:35 Baso # (Auto) 0.02 K/uL (0-0.2) 08/13/18 11:35 PT 10.7 Seconds (9.0-12.0) 08/13/18 11:35 INR 1.0 (0.9-1.1) 08/13/18 11:35 APTT 28.1 Seconds (21.0-31.0) 08/13/18 11:35 PTT Ratio 1.0 08/13/18 11:35 Sodium 141 mmol/L (136-145) 09/01/18 05:58 Potassium 3.7 mmol/L (3.5-5.1) 09/01/18 05:58 Chloride 110 mmol/L (98-107) H 09/01/18 05:58 Carbon Dioxide 24 mmol/L (21-32) 09/01/18 05:58 Anion Gap 7.0 (3-11) 09/01/18 05:58 BUN 16 mg/dl (7-18) 09/01/18 05:58 Creatinine 0.92 mg/dl (0.6-1.2) 09/01/18 05:58 Est Cr Clr Drug Dosing 57.5 ml/min 09/01/18 05:58 Est GFR ( Amer) 71.6 09/01/18 05:58 Est GFR (Non-Af Amer) 61.8 09/01/18 05:58 BUN/Creatinine Ratio 17.1 (10-20) 09/01/18 05:58 Glucose 154 mg/dl (70-99) H 09/01/18 05:58 Estimat Average Glucose 134 mg/dl 08/13/18 11:35 Hemoglobin A1c 6.3 % (4.5-5.6) H 08/13/18 11:35 Calcium 9.1 mg/dl (8.5-10.1) 09/01/18 05:58 Albumin 3.9 gm/dl (3.4-5.0) 08/13/18 11:35 Urine Color Yellow 08/13/18 Unknown Urine Appearance Clear (Clear) 08/13/18 Unknown Urine pH 6.5 (4.5-7.5) 08/13/18 Unknown Ur Specific [place] 1.021 (1.000-1.030) 08/13/18 Unknown Urine Protein Negative (Negative) 08/13/18 Unknown Urine Glucose (UA) Negative (Negative) 08/13/18 Unknown Urine Ketones Negative (Negative) 08/13/18 Unknown Urine Blood Negative (Negative) 08/13/18 Unknown Urine Nitrite Negative (Negative) 08/13/18 Unknown Urine Bilirubin Negative (Negative) 08/13/18 Unknown Urine Urobilinogen Negative (Negative) 08/13/18 Unknown Ur Leukocyte Esterase Negative (Negative) 08/13/18 Unknown Blood Type A Positive 08/13/18 11:35 Antibody Screen NEGATIVE 08/13/18 11:35
[2018-09-01] MEDS: APIXABAN 5 MG TABLET PO SCH ×2 (08:53→21:22)
[2018-09-01] MEDS: FERROUS GLUCONATE 324 MG TAB PO SCH ×2 (08:53→17:39)
[2018-09-01] MEDS: FEXOFENADINE HCL 180 MG TAB PO SCH (08:54)
[2018-09-01] MEDS: PANTOprazole 40 MG TAB PO SCH (08:54)
[2018-09-01] MEDS: DOCUSATE SODIUM 100 MG CAP PO SCH ×2 (08:55→21:21)
[2018-09-01] MEDS: MULTIVITAMIN TAB PO SCH (08:55)
[2018-09-01] MEDS: CALCIUM 600MG + VIT D 400 IU TAB PO SCH ×2 (08:55→21:21)
[2018-09-01] MEDS: OXYCODONE HCL IR 5 MG TAB (IMMEDIATE RELEASE) PO PRN ×2 (08:56→13:54)
--- NOTE | 2018-09-01 12:03 | Hospitalist Progress Note ---
Date of Service September 01, 2018 Assessment & Plan (1) Tricompartment osteoarthritis of right knee: status post arthroplasty of right knee by Dr Domingo. care per surgical team for wound care and dressing changes. pain management as tolerated. OOB with assistance and NWB on RIght Encourage incentive spiromery use DVT proph per primary (2) Osteoarthritis of left knee: as noted above (3) Afib: rate controlled. resume on diltiazem to keep HR between 60 -100 resume anticoagulation with eliquis when ok with surgery (4) HTN (hypertension): stable on avapro / HCTZ (5) GERD (gastroesophageal reflux disease): continue ppi (6) Headache: Continue imitrex Thank you for involving medicine in Ms. Ac care. We will sign off at this time. Please call with any questions. Subjective Ms. Ac is feeling well, no complaints, participated in therapy this morning Review of Systems Review of Systems: All systems reviewed & are unremarkable except as noted in HPI & below Physical Exam Physical Exam: General: no distress Eyes: normal inspection, PERLL Respiratory: chest non tender, clear to auscultation, normal breath sounds, no respiratory distress, no accessory muscle use Cardiac: regular rate and rhythm, no rub or gallop, no murmur, no edema, no jvd GI/: active bowel sounds, no abd pain or tenderness, soft, non distended Extremities: normal range of motion, normal strength, non tender Neuro/Psych: alert and oriented x 3, normal mood and affect Skin: normal color, dry Results & Data Vital Signs (Past 12 Hours) Vital Signs Temp Pulse Resp BP Pulse Ox 09/01/18 11:05 36.6 C 56 L 18 120/70 91 09/01/18 06:59 36.9 C 68 18 124/59 L 91 09/01/18 03:12 36.5 C 56 L 20 126/75 91 PG Care Time/CCT Total # of Minutes Spent Total Time Spent with Patient: Total time spent is greater than 50% in coordination of care (as documented) at patient's floor/unit and/or counseling patient:
[2018-09-01] MEDS: IRBESARTAN 150 MG TAB PO SCH (21:21)
[2018-09-01] MEDS: ROSUVASTATIN CALCIUM 10 MG TAB PO SCH (21:22)
[2018-09-01] MEDS: MONTELUKAST SODIUM 10 MG TABLET PO SCH (21:22)
[2018-09-01] MEDS: SENNA 8.6 MG TAB PO SCH (21:22)
[2018-09-01] MEDS: ASPIRIN 81 MG ECTAB PO SCH (21:22)
[2018-09-02] MEDS: OXYCODONE HCL IR 5 MG TAB (IMMEDIATE RELEASE) PO PRN ×3 (00:33→13:17)
[2018-09-02] MEDS: ACETAMINOPHEN 500 MG TAB PO SCH ×2 (05:34→13:18)
--- NOTE | 2018-09-02 06:52 | Orthopedic Progress Note ---
Date of Service September 02, 2018 Assessment & Plan (1) Tricompartment osteoarthritis of right knee: Postop day 2 status post right TKA. PT/OT protocols. Weightbearing as tolerated on right lower extremity. DVT prophylaxis with apixaban 5 mg p.o. twice daily, SURENDRA Burnett. Continue current pain regimen. DC planning-patient is planning for home health PT after PT today Subjective POD #2 s/p right TKA denies CP/SOB denies fever/chills Physical Exam Physical Exam: Vital Signs Temp Pulse Resp BP Pulse Ox 09/01/18 23:17 36.6 C 50 L 18 123/71 93 09/01/18 21:18 51 L 144/84 H 09/01/18 15:19 36.4 C L 51 L 17 108/67 95 09/01/18 14:07 93 09/01/18 11:05 36.6 C 56 L 18 120/70 91 09/01/18 06:59 36.9 C 68 18 124/59 L 91 Intake and Output 09/01/18 09/01/18 09/02/18 14:59 22:59 06:59 Intake Total 640 / 1280 400 / 1280 240 / 1280 Output Total 125 / 200 75 / 200 Balance 515 / 1080 325 / 1080 240 / 1080 Intake: Oral 640 / 1280 400 / 1280 240 / 1280 Output: Drain Output 125 / 200 75 / 200 Right Knee Hem ovac 125 / 200 75 / 200 Other: # Unmeasured Voi ds 1 1 Constitutional: WD/WN, vitals as above no acute distress Musculoskeletal: right knee: NVDI, calf SNT, negative gladys sign. DP palpable, able to wiggle toes/ankle movement without difficulty. prinea clean dry and intact. expected post-operative bruising noted. Results & Data Vital Signs (Past 12 Hours) Vital Signs Temp Pulse Resp BP Pulse Ox 09/01/18 23:17 36.6 C 50 L 18 123/71 93 09/01/18 21:18 51 L 144/84 H
[2018-09-02] MEDS: FEXOFENADINE HCL 180 MG TAB PO SCH (08:49)
[2018-09-02] MEDS: APIXABAN 5 MG TABLET PO SCH (08:49)
[2018-09-02] MEDS: FERROUS GLUCONATE 324 MG TAB PO SCH (08:49)
[2018-09-02] MEDS: DOCUSATE SODIUM 100 MG CAP PO SCH (08:50)
[2018-09-02] MEDS: MULTIVITAMIN TAB PO SCH (08:50)
[2018-09-02] MEDS: PANTOprazole 40 MG TAB PO SCH (08:50)
[2018-09-02] MEDS: CALCIUM 600MG + VIT D 400 IU TAB PO SCH (08:50)
--- NOTE | 2018-09-03 15:08 | Discharge Summary ---
DISCHARGE DIAGNOSIS: Right knee degenerative joint disease. SECONDARY DIAGNOSES: Anxiety, atrial fibrillation on Eliquis b.i.d., gastroesophageal reflux disease, hyperlipidemia, hypertension, renal calculi, cataract in left eye, migraine headaches, osteoarthritis. CONSULTS: Dr. Felicia Calhoun. COMPLICATIONS: None. PROCEDURES: Right total knee arthroplasty performed by Dr. Domingo on 08/31/2018. BRIEF HISTORY: As dictated in the history and physical. HOSPITAL SUMMARY: The patient was admitted on the above-noted date and had the above-noted surgery performed, which she tolerated well. Medicine service was consulted for medical management during her stay and continued to follow patient while she was here. On her first postoperative day, she was sitting up in a chair at that time. The nursing staff had related that she had some coarse breath sounds during auscultation, O2 saturations in the low 90s. This was done while she was lying in bed. The patient was currently sitting in chair at the time and states that she has just been using her incentive spirometry. She denies shortness of breath, chest pain, lightheadedness. Pain was controlled. Dressings clean, dry and intact. Calves were soft, nontender. Neurovascular was intact. Toes were mobile. Hemovac drainage was 125 mL from previous shift. Auscultation of her lungs at that time shows clear to auscultation with no coarse upper airway sounds. Vital signs were stable. She was afebrile. Hemoglobin was 12.1 and she was started on PT and OT protocols, weightbearing as tolerated and continued on DVT prophylaxis and pain management. By her second postoperative day, she had no complaints and vital signs were stable. She was afebrile. Neurovascular was intact. Calves were soft and nontender. Toes were mobile. Prineo dressing was clean, dry and intact and she was continued on her protocol. She was otherwise remaining stable medically and orthopedically, and it was felt that she could be discharged to home on 09/02/2018. For further review, please see chart. LABORATORY AND X-RAY DATA: As per chart. DISCHARGE INSTRUCTIONS: The patient was discharged to home in satisfactory condition on 09/02/2018. Diet: Regular. Activity: Weightbearing as tolerated on the right lower extremity with use of a walker. Follow TK instruction sheets and special care instructions as noted and follow up with Dr. Domingo in 2 weeks. The patient is to call for appointment if one has not been made for you. DISCHARGE MEDICATIONS: Acetaminophen 1000 mg p.o. q. 8 hours, cefadroxil 500 mg p.o. b.i.d., Colace 100 mg p.o. b.i.d., oxycodone 5 mg p.o. q. 6 hours p.r.n. Resume home meds as listed and stop taking previous Tylenol and oxycodone tablets.
== END 2018-09-02 13:48 | disposition home health service (06) | DRG 470 ==
LOC: ASU 06:11 → 3E 10:29